=== PATIENT | female | born 1965 | race Two or more races ===

== ENCOUNTER 2023-07-31 09:00 | Outpatient (CLI) | payer OTHER | END 2023-07-31 09:07 | disposition home or self-care (01) | LOC: SONOGRAMA 09:00 | PROVIDERS: ATTEND Pathology Anatomic Pathology & Clinical Pathology | DX: D34 Benign neoplasm of thyroid gland (principal); E06.3 Autoimmune thyroiditis; E04.1 Nontoxic single thyroid nodule ==

== ENCOUNTER 2024-04-01 06:23 | Day surgery (SDC) | payer OTHER ==
[~2024-04-01 06:23] MED LIST: CHILDREN'S ASPI81 MG PO; LOSARTAN POTAS100 MG PO; SYNTHROID112 MCG PO
[2024-04-01] MEDS ORDERED: IBU600 MG PO (09:33)
[2024-04-01] MEDS ORDERED: POVIDONE-IODINE 118 ML BOTT TOP ONE (12:45)
== END 2024-04-01 12:25 | disposition home or self-care (01) ==
LOC: CIR.AMB 06:23
PROVIDERS: ATTEND Obstetrics & Gynecology Gynecology
DX: N87.9 Dysplasia of cervix uteri, unspecified (principal); N95.0 Postmenopausal bleeding; I10 Essential (primary) hypertension; E03.9 Hypothyroidism, unspecified; J32.9 Chronic sinusitis, unspecified